=== PATIENT | female | born 1990 ===

== ENCOUNTER 2025-02-02 22:20 | Emergency (ER) | payer SELFPAY ==
[2025-02-02 22:23] VITALS: BP 145/87; PULSE 109; RESP 20; TEMP 36.5; O2SAT 99
== END 2025-02-03 00:53 | disposition left against medical advice (07) ==
LOC: ANHED 02-03 00:48
DX: R11.2 Nausea with vomiting, unspecified (principal)
CPT/HCPCS: 99199